=== PATIENT | female | born 1935 | race Caucasian/White ===

== ENCOUNTER 2017-06-13 11:00 | Outpatient (RCR) | payer MEDICARE ==
[~2017-06-13 11:00] MED LIST: COUMADIN3 MG PO; LEVOTHYROXINE50 MCG PO; LOSARTAN-HCTZ1 EACH PO; SIMVASTATIN40 MG PO
== END 2017-06-16 ==
LOC: PT 11:00
PROVIDERS: ATTEND Specialist
DX: M75.42 Impingement syndrome of left shoulder (principal); M75.41 Impingement syndrome of right shoulder; M62.81 Muscle weakness (generalized)
CPT/HCPCS: 97110 ×7; G8984; G8985

== ENCOUNTER 2017-06-20 11:01 | Outpatient (RCR) | payer MEDICARE | END 2017-07-17 | LOC: PT 11:01 | PROVIDERS: ATTEND Specialist | DX: M75.42 Impingement syndrome of left shoulder (principal); M75.41 Impingement syndrome of right shoulder; M62.81 Muscle weakness (generalized) | CPT/HCPCS: 97110; G8985; G8986 ==

== ENCOUNTER → 2019-11-17 | Outpatient (CLI) | payer MEDICARE ==
--- NOTE | 2019-11-17 10:11 | Diagnostic Imaging Report ---
TECHNIQUE: Magnetic resonance imaging of the left SHOULDER was performed WITHOUT injected contrast. COMPARISON: None available. HISTORY: left shoulder pain FINDINGS: MUSCLES AND TENDONS: Rotator Cuff: Tendons: Bursal surface fraying of the supraspinatus and infraspinatus. No high-grade tear. Muscles: No focal muscle atrophy. Biceps Tendon: The long head of the biceps tendon is intact and within the intertubercular groove. GLENOHUMERAL JOINT: Glenoid Labrum: No displaced tear. Articular Cartilage: No focal defect. AC JOINT AND ACROMION: Mild hypertrophic degenerative changes of the acromioclavicular joint. Downsloping acromion with spurring. BONE: No focal or infiltrative bone marrow replacing abnormality. No acute fracture. SOFT TISSUES: Otherwise, the soft tissues appear unremarkable. IMPRESSION: Supraspinatus and infraspinatus bursal surface fraying without high-grade tear. Downsloping acromion with subacromial spurring. Signed by: Dr. Chirag Kidd M.D. on 11/17/2019 10:08 AM
--- NOTE | 2019-11-17 10:21 | Diagnostic Imaging Report ---
TECHNIQUE: Magnetic resonance imaging of the RIGHT SHOULDER was performed WITHOUT injected contrast. COMPARISON: None available. HISTORY: Right shoulder pain FINDINGS: MUSCLES AND TENDONS: Rotator Cuff: Tendons: Bursal surface fraying of the supraspinatus and infraspinatus with small interstitial tear series 10 image 14. No high-grade tear. Muscles: No focal muscle atrophy. Biceps Tendon: The long head of the biceps tendon is intact and within the intertubercular groove. GLENOHUMERAL JOINT: Glenoid Labrum: No displaced tear. Articular Cartilage: No focal defect. AC JOINT AND ACROMION: Mild hypertrophic degenerative changes of the acromioclavicular joint. Downsloping acromion with spurring. BONE: No focal or infiltrative bone marrow replacing abnormality. No acute fracture. SOFT TISSUES: Otherwise, the soft tissues appear unremarkable. IMPRESSION: Supraspinatus and infraspinatus bursal surface fraying with small interstitial tear at the humeral insertion. No high-grade tear. Downsloping acromion with subacromial spurring. Signed by: Dr. Chirag Kidd M.D. on 11/17/2019 10:18 AM
== END ==
LOC: MRI 08:14
PROVIDERS: ATTEND Specialist
DX: M75.42 Impingement syndrome of left shoulder (principal); M75.41 Impingement syndrome of right shoulder

== ENCOUNTER 2020-12-06 09:51 | Outpatient (RCR) | payer MEDICARE ==
[~2020-12-06 09:51] MED LIST changes: +LIDOCAINE VISC 2% SOLN 15 ML UDC ONE
== END 2020-12-14 ==
LOC: WCC 09:51
PROVIDERS: ATTEND Family Medicine Adult Medicine
DX: I87.2 Venous insufficiency (chronic) (peripheral) (principal); I80.9 Phlebitis and thrombophlebitis of unspecified site; R60.0 Localized edema; T23.231A Burn of second degree of multiple right fingers (nail), not including thumb, initial encounter; T23.251A Burn of second degree of right palm, initial encounter; M81.0 Age-related osteoporosis without current pathological fracture; D64.9 Anemia, unspecified; I10 Essential (primary) hypertension; E78.5 Hyperlipidemia, unspecified; X19.XXXA Contact with other heat and hot substances, initial encounter

== ENCOUNTER → 2020-12-23 | Outpatient (CLI) | payer MEDICARE ==
[~2020-12-23] MED LIST changes: -LIDOCAINE VISC 2% SOLN 15 ML UDC ONE
== END ==
LOC: RAD 10:33
PROVIDERS: ATTEND Family Medicine
DX: M79.622 Pain in left upper arm (principal)
CPT/HCPCS: 93971

== ENCOUNTER → 2020-12-30 | Outpatient (CLI) | payer MEDICARE | LOC: CARD 09:46 | PROVIDERS: ATTEND Family Medicine | DX: I65.23 Occlusion and stenosis of bilateral carotid arteries (principal) | CPT/HCPCS: 93880 ==